=== PATIENT | female | born 1995 | race Caucasian/White ===

== ENCOUNTER 2017-01-19 21:10 | Emergency (ER) | payer BC ==
[~2017-01-19] VITALS: Ht 157.5 cm; Wt 74.1 kg
[2017-01-19 21:40] VITALS: BP 137/82
== END 2017-01-19 22:25 | disposition home or self-care (01) ==
LOC: ED 22:19
DX: J45.909 Unspecified asthma, uncomplicated (principal); J20.9 Acute bronchitis, unspecified
CPT/HCPCS: 71020; 99284